=== PATIENT | male | born 1965 | race Two or more races ===

== ENCOUNTER 2017-09-17 07:42 | Observation (INO) | payer OTHER ==
[~2017-09-17] VITALS: Ht 185.4 cm; Wt 121.6 kg
[~2017-09-17 07:42] MED LIST: LOSARTAN POTASS25 M1 PO; VICODIN1 TA1 PO
[2017-09-17 08:56] LABS: BASOPHIL % 0.6 % (0-2); PLATELET COUNT 224 x10^3mcL (130-400); RED CELL DISTRIBUTION WIDTH 14.1 % (11.5-14.5)
[2017-09-17 09:08] LABS: CALCIUM 9.1 mg/dL (8.5-10.1); CHLORIDE SERUM 105 mmol/L (98-107); CREATININE SERUM 0.7 mg/dL (0.7-1.3); GFR1 > 60 mL/min; GLUCOSE SERUM 99 mg/dL (74-106); SODIUM SERUM 141 mmol/L (136-145)
[2017-09-17 09:20] LABS: ALBUMIN 3.6 g/dL (3.4-5.0); ALKALINE PHOSPHATASE 64 U/L (46-116); ALT/SGPT 39 U/L (16-63); AST/SGOT 20 U/L (15-37); BILIRUBIN TOTAL 0.3 mg/dL (0.20-1.00); TOTAL PROTEIN, SERUM 7.7 g/dL (6.4-8.2)
[2017-09-17] MEDS ORDERED: LOSARTAN POTASS25 M1 PO (10:30)
[2017-09-17 11:15] VITALS: BP 125/62
[2017-09-17 12:10] LABS: FREE T4 0.99 ng/dL (0.76-1.46); FREE THYROXINE INDEX 3.5 ug/dL (1.4-4.5); T4(THYROXINE) 10.5 ug/dL (4.7-13.3)
[2017-09-17 12:16] LABS: T3 TOTAL 1.62 ng/mL
[2017-09-17] MEDS ORDERED: GOOD SENSE ASPI81 M3 PO (12:16)
[2017-09-17] MEDS ORDERED: GOOD SENSE ASPI81 M3 (12:16)
[2017-09-17 12:38] LABS: PHOSPHOROUS 3.4 mg/dL (2.5-4.9)
[2017-09-17 12:39] LABS: CHOLESTEROL/HDL RATIO 4.5
[2017-09-17 12:41] LABS: microscopic required? NO
[2017-09-17 13:17] VITALS: BP 125/62
[2017-09-17 13:28] LABS: urine erythrocyte NEGATIVE (NEGATIVE)
[2017-09-17 13:39] LABS: AMPHETAMINE QUAL UR NONE DETECTED (NEG <=1000)
[2017-09-17 18:30] VITALS: BP 100/56
[2017-09-17 21:09] VITALS: BP 119/71
[2017-09-17 22:26] VITALS: BP 119/71
[2017-09-18 06:44] VITALS: BP 115/73
[2017-09-18 07:20] LABS: CALCIUM 9.1 mg/dL (8.5-10.1); CARBON DIOXIDE 28.2 mmol/L (21-32); CHLORIDE SERUM 105 mmol/L (98-107); CREATININE SERUM 0.8 mg/dL (0.7-1.3); GFR1 > 60 mL/min; GLUCOSE SERUM 92 mg/dL (74-106); POTASSIUM SERUM 4.3 mmol/L (3.5-5.1); SODIUM SERUM 139 mmol/L (136-145)
[2017-09-18 08:02] LABS: BASOPHIL % 0.6 % (0-2); PLATELET COUNT 211 x10^3mcL (130-400); RED CELL DISTRIBUTION WIDTH 14.5 % (11.5-14.5)
[2017-09-18 09:05] VITALS: BP 121/67
[2017-09-18 13:09] VITALS: BP 124/76
[2017-09-18] MEDS ORDERED: ATORVASTATIN CA40 M1 PO (14:39)
== END 2017-09-18 14:52 | disposition left against medical advice (07) | DRG 552 ==
LOC: ED 07:42 → DU 10:26 → MU 10:26 → DU 11:01 → MU 09-18 12:52
PROVIDERS: Emergency Medicine; ADMIT Family Medicine
DX: M48.061 Spinal stenosis, lumbar region without neurogenic claudication (principal); M51.17 Intervertebral disc disorders with radiculopathy, lumbosacral region; G90.9 Disorder of the autonomic nervous system, unspecified; E27.9 Disorder of adrenal gland, unspecified; R73.03 Prediabetes; I10 Essential (primary) hypertension; E78.5 Hyperlipidemia, unspecified; F17.210 Nicotine dependence, cigarettes, uncomplicated; E66.9 Obesity, unspecified; Z68.35 Body mass index [BMI] 35.0-35.9, adult; Z79.891 Long term (current) use of opiate analgesic
CPT/HCPCS: 83880; 84439; G0378; J1885; J2405; J3010; J7030; Q0092; Q9967

== ENCOUNTER 2018-11-20 08:57 | Emergency (ER) | payer OTHER ==
[~2018-11-20] VITALS: Ht 188 cm; Wt 127.9 kg
[~2018-11-20 08:57] MED LIST changes: +ATORVASTATIN CA40 M1 PO; +GOOD SENSE ASPI81 M3; +GOOD SENSE ASPI81 M3 PO
[2018-11-20 09:00] VITALS: Ht 188 cm; Wt 127.9 kg
[2018-11-20 09:53] LABS: BASOPHIL % 0.6 % (0-2); PLATELET COUNT 208 x10^3mcL (130-400)
[2018-11-20 09:56] LABS: RED CELL DISTRIBUTION WIDTH 14.6 % (11.5-14.5)
[2018-11-20 10:07] LABS: CALCIUM 9.6 mg/dL (8.5-10.1); CARBON DIOXIDE 24.4 mmol/L (21-32); CHLORIDE SERUM 104 mmol/L (98-107); CREATININE SERUM 0.8 mg/dL (0.7-1.3); GFR1 > 60 mL/min; GLUCOSE SERUM 104 mg/dL (74-106); SODIUM SERUM 140 mmol/L (136-145)
[2018-11-20 10:12] LABS: ALBUMIN 3.8 g/dL (3.4-5.0); ALKALINE PHOSPHATASE 63 U/L (46-116); ALT/SGPT 46 U/L (16-63); AST/SGOT 20 U/L (15-37); BILIRUBIN TOTAL 0.1 mg/dL (0.20-1.00); CHOLESTEROL 186 mg/dL (<200); HDL CHOLESTEROL 47 mg/dL (40-60); TOTAL PROTEIN, SERUM 7.7 g/dL (6.4-8.2); TRIGLYCERIDES 120 mg/dL (<150)
[2018-11-20 13:56] VITALS: BP 123/67
== END 2018-11-20 13:56 | disposition home or self-care (01) ==
LOC: ED 08:57
PROVIDERS: Emergency Medicine
DX: R07.89 Other chest pain (principal); R20.2 Paresthesia of skin; R06.02 Shortness of breath; F17.200 Nicotine dependence, unspecified, uncomplicated; I10 Essential (primary) hypertension; M54.30 Sciatica, unspecified side
CPT/HCPCS: 36415; 99406; Q0092